=== PATIENT | male | born 1945 | race Caucasian/White ===

== ENCOUNTER → 2017-01-30 | Day surgery (SDC) | payer OTHER ==
[~2017-01-30] MED LIST: BUPIVACAINE/EPINEPHRINE 0.25% 50 ML VIAL ONE; KETOROLAC TROMETHAMINE 30 MG/ML (IVP) VIAL IV PUSH ONE; LACTATED RINGER'S 1000 ML INJ 1,000 ML ONE; MEPERIDINE HCL 25 MG/ML VIAL ONE; MIDAZOLAM HCL 2 MG/2 ML VIAL ONE; ONDANSETRON HCL 4 MG/2 ML VIAL IV PUSH ONE; PROPOFOL 200 MG/20 ML AMP IV ONE; SODIUM CHLORIDE 0.9% INJ 10 ML ONE; ceFAZolin INJ 1,000 MG VIAL ONE
--- NOTE | 2017-01-30 11:58 | TN ---
cc: LUIS ANGEL ARROYO M.D. DATE OF SURGERY: 01/30/2017 PREOPERATIVE DIAGNOSIS Bilateral inguinal hernia, recurrent right, left inguinal scrotal hernia. POSTOPERATIVE DIAGNOSES Bilateral inguinal hernia, recurrent right, left inguinal scrotal hernia. PROCEDURE Laparoscopic repair right inguinal hernia with mesh extraperitoneal approach, transabdominal approach to left indirect inguinal hernia repair with [place]-Isidro dual mesh and open repair of small umbilical hernia. SURGEON Dr. Luis Angel Arroyo. [employer] OPERATOR: LAURIE Monet. ANESTHESIA: General. INDICATIONS A very pleasant 71-year-old gentleman who had previous right inguinal hernia repair who has noted occasional burning sensation in the groin and evidence of bilateral inguinal hernia. The hernia on the left is reducible but inguinoscrotal. There was a small recurrent right inguinal hernia. INTRAOPERATIVE FINDINGS Right indirect inguinal hernia right femoral hernia repaired in preperitoneal approach, incarcerated sigmoid colon on the left groin densely adherent with scar requiring transabdominal approach to reduce the sigmoid colon and a large amount of fatty tissue preperitoneal in nature. It was a large indirect inguinal hernia defect. [place]-Isidro dual mesh was placed to the intraperitoneal location. Estimated blood loss less than 10 ml. DESCRIPTION OF PROCEDURE IN DETAIL The patient identified as Jarek Britt, taken to operating room, placed supine position. Sequential compression devices were placed on bilateral lower extremities. Following induction of adequate general anesthesia the patient's lower abdomen was prepped and draped in usual sterile fashion with Betadine. A time-out procedure was performed. Following completion time-out procedure everyone's satisfaction within the room 0.25% Marcaine with epinephrine was placed at each incision site. Infraumbilical small transverse incision was carried out with scalpel and dissection posteriorly. Small umbilical hernia defect was identified and umbilical skin was relieved from the small defect which was probably 5 mm in size. The anterior rectus fascia left side was identified as medial border was incised with scalpel allowing for development of preperitoneal plane with surgeon's finger directed towards the pubic symphysis. The patient slight Trendelenburg position. The preperitoneal dissecting balloon was placed in preperitoneal position inflated to a total approximately 40 pumps. This allowed identification of bilateral inferior epigastric vessels but in the fatty tissue covered the pubic symphysis and Miguel's ligaments. The balloon was desufflated and the structural balloon trocar placed in preperitoneal space and its balloon inflated and CO2 insufflation to level of 11 mmHg ensued. Two infraumbilical midline 5 mm trocars placed in preperitoneal space under direct laparoscopic view after incision skin with scalpel. Attention was turned first to the left-sided and the anatomy was abnormal. Blunt dissection laterally allowed for separation the lateral border of spermatic cord from the lateral pelvic sidewall over medially. There is just a large mass of tissue which was unusual to say the least. Attention was then turned to the right side to try and identify a normal-appearing anatomy to try to facilitate left side dissection. Blunt dissection allowed identification of Miguel's ligament and the inferior epigastric vessels. Blunt graspers used to dissect lateral posterior the spermatic cord and right-sided adherent peritoneum was reduced to the base of spermatic cord. Posterior laterally spermatic cord lipoma was reduced from the inguinal canal with the blunt graspers. There was a femoral hernia defect and fatty tissue was reduced from it. A four x 6 inches piece of atrium Prolene mesh was cut and the anterolateral slit placed around the spermatic cord and tacked position pro tack device. Tacks were placed to approximate the anterolateral slit and on the anterior border Miguel's ligament. A 2 x 6 inch piece of mesh was placed across the anterolateral slit and held position with Protac device placing a tack superolaterally inferomedial and superior medially. Photographs were taken of completed repair. This went very smoothly and attention was then returned to the left side. With meticulous dissection and the patient's impersistence the dissection proceeded on the left side. This gently dissecting the scar tissue from the anterior abdominal wall, a defect in the hernia sac was occurred and dense adherence sigmoid colon was identified. At this point it was determined a safe thing to do was proceed and transitioned to a transabdominal approach. The trocars removed in the preperitoneal space was desufflated and the infraumbilical trocars removed through the small hernia defect at the umbilicus was extended laterally on each side and the intraperitoneal extension was performed with surgeon's finger. The applied medical balloon [place] trocars placed in peroneal cavity balloon inflated to insufflation to level 15 mmHg ensued. A 5 mm trocar was returned through the previous incision cyst time into the peritoneal cavity under direct laparoscopic view after incision skin with scalpel. Immediately identified was a densely adherent sigmoid colon which was carefully removed from the anterior abdominal wall adhesions using combination of blunt dissection and scissors. Small bleeding points were controlled with cautery. The sigmoid colon was uninjured, after it had been reduced a large amount of fatty tissue was seen protruding along the spermatic cord down into an indirect inguinal hernia defect. This was able to be reduced with the blunt graspers thus isolating the spermatic cord contents a photograph was taken of indirect hernia defect. A 10 x 15 x 1 piece of [place]-Isidro dual mesh was then selected and cut this down with a anterior medial slit due to the large defect lateral to the spermatic cord generous portion of the [place]-Isidro was left laterally and it was marked on the smooth side at the anticipated fixation point to Miguel's ligament medially which was cleared. Dense scar tissue had being removed carefully in order to clear the Miguel's ligament. Clinically it was consistent with like a ball of mesh or potentially dense scar tissue reaction from his prostate radiation a nice preperitoneal plane laterally was developed with the blunt graspers to facilitate placement of the [place] mesh inferior laterally in a preperitoneal plane. The mesh was rolled placed in the peritoneal cavity placed around the spermatic cord and tacks were placed to approximate the anterolateral slit and medial to the inferior epigastric vessels. Tacks were placed on the anterior border Miguel's ligament and then tacked superiorly and laterally until I could not feel the tack laterally to avoid cutaneous nerve injury. Photograph was taken of the completed repair the defect was broadly covered. The torn peritoneal lining was left alone. The mesh on the right side was nicely covered with peritoneum. Remaining local anesthetic was placed in preperitoneal space. Trocars removed under direct visualization was no loss of bleeding from trocar sites. The abdomen was desufflated through the infraumbilical port was then removed. The anterior rectus fascial incision was closed with running 2-0 Vicryl suture. The umbilical hernia defect was approximated with three interrupted inverted zero Prolene sutures. The umbilicus reformed with 2-0 Vicryl in the skin incisions were approximated 4-0 Monocryl subcuticular sutures. Dressings were applied, Mastisol inch brown Steri-Strips, gauze and Tegaderm. The patient tolerated the procedure without apparent complication. Sponge, needle and instrument counts were correct at the end of the case. This procedure was assisted by my nurse practitioner. The skill set of an DIRECTOR MARKET RESEARCH was medically necessary to allow for efficient completion of the procedure and developing exposure and visualization of the important anatomic structures. During the surgery, the surgical asst was at the back table providing appropriate instrumentation while the nurse practitioner was directly assisting me through the entirety of the procedure. MD GABY Tolentino/teressa /10:06 AM /11:44 AM STEPHEN
== END | disposition home or self-care (01) ==
LOC: ESDC 06:35
PROVIDERS: ATTEND Surgery Trauma Surgery
DX: K40.21 Bilateral inguinal hernia, without obstruction or gangrene, recurrent (principal); K42.9 Umbilical hernia without obstruction or gangrene
CPT/HCPCS: 00750; 00840; 49585; 49651; C1727; C1781; J0690; J1885; J2175; J2250; J2405; J3010; J7120